=== PATIENT | female | born 1950 | race Caucasian/White ===

== ENCOUNTER 2018-05-31 16:17 | Emergency (ER) | payer MEDICARE ==
[2018-05-31 17:45] VITALS: BP 165/93
[2018-05-31] MEDS ORDERED: Ibuprofen TAB* 600 MG PO ONE (17:59)
--- NOTE | 2018-05-31 18:04 | UC ---
Hand/Wrist HPI - HPI Summary HPI Summary: patient states she was playing with grandson around 4p this afternoon with trucks when she felt a very sharp apin on the thumb and along that side of the right wrist. Denies falling or trauma. Pain is very acute. She has not taken any medications to alleviate it. States her BP goes up every time she is under stress - History Of Current Complaint Chief Complaint: UCUpperExtremity Stated Complaint: HAND PAIN Time Seen by Provider: 05/31/18 17:40 Hx Obtained From: Patient Hx Last Menstrual Period: post menopausal ?: No Onset/Duration: Sudden Onset Severity Initially: Moderate Severity Currently: Severe Pain Intensity: 10 Character Of Pain: Sharp Aggravating Factor(s): Movement, Lifting, Extension, Internal/External Rotation , Adduction Alleviating Factor(s): Nothing Associated Signs And Symptoms: Positive: Negative - Allergies/Home Medications Allergies/Adverse Reactions: Allergies Allergy/AdvReac Type Severity Reaction Status Date / Time erythromycin base Allergy Rash And Verified 05/31/18 17:46 Itching escitalopram [From Lexapro] Allergy Rash Verified 05/31/18 17:47 penicillin G Allergy Rash Verified 05/31/18 17:47 Penicillins Allergy Rash Verified 05/31/18 17:47 Sulfa (Sulfonamide Allergy Rash And Verified 05/31/18 17:47 Antibiotics) Itching Home Medications: Home Medications Dicyclomine HCl 20 mg PO 05/31/18 [History] PMH/Surg Hx/FS Hx/Imm Hx Previously Healthy: Yes Endocrine History: Hypothyroidism Respiratory History: Asthma - Surgical History Surgical History: Yes Surgery Procedure, Year, and Place: Hysterectomy late [place] breast lumpectomy 2008, appendectomy as a child - Family History Known Family History: Positive: Hypertension - Social History Alcohol Use: None Substance Use Type: None Smoking Status (MU): Never Smoked Tobacco Have You Smoked in the Last Year: No Review of Systems Constitutional: Negative Skin: Negative Musculoskeletal: Arthralgia, Myalgia All Other Systems Reviewed And Are Negative: Yes Physical Exam Triage Information Reviewed: Yes Appearance: Well-Appearing, Well-Nourished, Pain Distress Vital Signs: Initial Vital Signs Temp 98.6 F 05/31/18 17:37 Pulse 79 05/31/18 17:37 Resp 16 05/31/18 17:37 BP 165/93 05/31/18 17:37 Pulse Ox 97 05/31/18 17:37 Vital Signs Reviewed: Yes Eyes: Positive: Conjunctiva Clear ENT: Positive: Hearing grossly normal Neck exam: Normal Respiratory: Positive: Chest non-tender Cardiovascular: Positive: Pulses Normal, Brisk Capillary Refill Musculoskeletal: Positive: ROM Intact, No Edema, Other: - tenderness along radial aspect of right wrist and radial aspect of proximal carpal area. No deformity or edema/erythema on the area. Positive Lemuel test Hand/Wrist Course/Dx - Course Course Of Treatment: xray shows DJD changes, start NSAIDs as instructed. F/u with PCP. use sling and wrist splint as indicated - Differential Dx/Diagnosis Provider Diagnoses: De Quervain's tenosinusitis. Osteoarthritis Discharge - Sign-Out/Discharge Documenting (check all that apply): Patient Departure - Discharge Plan Condition: Stable Disposition: HOME Patient Education Materials: Osteoarthritis (ED), De Quervain Disease (ED), Ibuprofen (By mouth) Referrals: Alix Hsieh MD [Primary Care Provider] - - Billing Disposition and Condition Condition: STABLE Disposition: Home
--- NOTE | 2018-05-31 18:26 | RAD ---
INDICATION: RIGHT thumb pain and edema. COMPARISON: No relevant prior exams [place] [facility] [place]. TECHNIQUE: AP, lateral, and oblique views RIGHT hand. REPORT: Bone density appears decreased throughout. In addition there is suggestion of periarticular osteopenia throughout. Negative for fracture or dislocation. Osteophytosis and advanced joint space narrowing at the basal joint of the thumb. Joint space narrowing at the metacarpal phalangeal and interphalangeal joints with relative paucity of osteophytosis. No definitive osseous erosions evident. Similar pattern of arthropathy at the wrist. Mild periarticular soft tissue swelling at the metacarpal phalangeal and proximal interphalangeal joints. IMPRESSION: #. Negative for fracture or dislocation. #. Mixed arthropathy pattern with degenerative arthropathy at the basal joint of the thumb and stigmata of inflammatory arthropathy/rheumatoid arthritis at the metacarpal phalangeal and interphalangeal joints as well as at the wrist.
== END 2018-05-31 18:52 | disposition home or self-care (01) ==
LOC: UCEAST 16:17
DX: M65.4 Radial styloid tenosynovitis [de Quervain] (principal); M19.041 Primary osteoarthritis, right hand; Z88.1 Allergy status to other antibiotic agents; Z88.0 Allergy status to penicillin; Z88.2 Allergy status to sulfonamides; Z82.49 Family history of ischemic heart disease and other diseases of the circulatory system
CPT/HCPCS: 99212; A9270-GY; G0463

== ENCOUNTER 2019-06-29 11:36 | Emergency (ER) | payer MEDICARE ==
[2019-06-29 13:04] VITALS: BP 152/77
--- NOTE | 2019-06-29 13:28 | UC ---
Respiratory Complaint HPI - HPI Summary HPI Summary: Sinus inflammation and congestion for a few days. Of note also sick. she is requesting antibx. - History of Current Complaint Chief Complaint: UCGeneralIllness Stated Complaint: SINUSES Time Seen by Provider: 06/29/19 13:08 Hx Obtained From: Patient Hx Last Menstrual Period: post menopausal Pain Intensity: 0 Pain Scale Used: 0-10 Numeric Character: Cough: Productive Aggravating Factors: Nothing Alleviating Factors: Nothing Associated Signs And Symptoms: Negative: Dyspnea, Fever, Chills - Allergies/Home Medications Allergies/Adverse Reactions: Allergies Allergy/AdvReac Type Severity Reaction Status Date / Time erythromycin base Allergy Rash And Verified 06/29/19 13:05 Itching escitalopram [From Lexapro] Allergy Rash Verified 06/29/19 13:05 penicillin G Allergy Rash Verified 06/29/19 13:05 Penicillins Allergy Rash Verified 06/29/19 13:05 Sulfa (Sulfonamide Allergy Rash And Verified 06/29/19 13:05 Antibiotics) Itching Home Medications: Home Medications Methylcellulose [Citrucel] 1 tab PO BEDTIME 06/29/19 [History Confirmed 06/29/19 ] PMH/Surg Hx/FS Hx/Imm Hx Previously Healthy: Yes Endocrine History: Thyroid Disease Respiratory History: Asthma - Surgical History Surgical History: Yes Surgery Procedure, Year, and Place: Hysterectomy late [place], [place] breast lumpectomy 2008, appendectomy as a child - Family History Known Family History: Positive: Hypertension - Social History Alcohol Use: None Substance Use Type: None Smoking Status (MU): Never Smoked Tobacco Have You Smoked in the Last Year: No Review of Systems All Other Systems Reviewed And Are Negative: Yes Constitutional: Negative: Fever Skin: Negative: Rash ENT: Positive: Nasal Discharge, Sinus Congestion, Sinus Pain/Tenderness. Negative: Sore Throat, Ear Ache Respiratory: Positive: Cough. Negative: Shortness Of Breath Cardiovascular: Negative: Palpitations Physical Exam Triage Information Reviewed: Yes Appearance: Well-Appearing Vital Signs: Initial Vital Signs Temp 98 F 06/29/19 13:00 Pulse 88 06/29/19 13:00 Resp 16 06/29/19 13:00 BP 152/77 06/29/19 13:00 Pulse Ox 97 06/29/19 13:00 Vital Signs Reviewed: Yes Eyes: Positive: Conjunctiva Clear ENT: Positive: Pharynx normal, TMs normal, Sinus tenderness - frontal, Uvula midline. Negative: Dental tenderness Neck: Positive: No Lymphadenopathy Respiratory Exam: Normal Cardiovascular Exam: Normal Neurological: Positive: Alert Skin: Negative: Rashes Respiratory Course/Dx - Course Course Of Treatment: Sinusitis; acute. Exam unremarkable aside from frontal tenderness. I explained that I suspect viral etiology and that antibx may not help. She has decided to take antibx Vitals good but I did ask her to speak to her pcp about blood pressure. - Differential Dx/Diagnosis Differential Diagnosis/HQI/PQRI: Lower Resp Infection, Sinusitis Provider Diagnosis: Sinusitis Discharge ED - Sign-Out/Discharge Documenting (check all that apply): Patient Departure All imaging exams completed and their final reports reviewed: No Studies - Discharge Plan Condition: Good Disposition: HOME Prescriptions: Azithromycin TAB* [Zithromax TAB (Z-IRVING) 250 mg #6 tabs] 2 tab PO .TODAY, THEN 1 DAILY #1 irving Patient Education Materials: Sinusitis (ED) Referrals: Alix Hsieh MD [Primary Care Provider] - Additional Instructions: Please discuss your high blood pressure with your pcp - Billing Disposition and Condition Condition: GOOD Disposition: Home - Attestation Statements Provider Attestation: I was available for consult. This patient was seen by the ZAKI. The patient was not presented to , seen by or examined by al -Nader Quintero MD
== END 2019-06-29 13:54 | disposition home or self-care (01) ==
LOC: UCEAST 11:36
DX: J32.9 Chronic sinusitis, unspecified (principal); E07.9 Disorder of thyroid, unspecified; J45.909 Unspecified asthma, uncomplicated; Z88.0 Allergy status to penicillin; Z88.2 Allergy status to sulfonamides
CPT/HCPCS: 99212; G0463

== ENCOUNTER 2020-06-20 19:45 | Observation (INO) ==
[2020-06-20 20:11] LABS: ABS Basophils 0.1 10^3/ul (0-0.2); ABS Eosinophils 0.1 10^3/ul (0-0.6); ABS Lymphocytes 1.4 10^3/ul (1.0-4.8); ABS Monocytes 0.4 10^3/ul (0-0.8); Eosinophil % 1.8 %; Hematocrit 42 % (35-47); Hemoglobin 14.8 g/dL (12.0-16.0); Lymphocyte % 23.4 %; Mean Corpuscular HGB Conc 35 g/dL (31-36); Mean Corpuscular Hemoglobin 31 pg (27-31); Mean Corpuscular Volume 89 fL (80-97); Mean Platelet Volume 7.9 fL (7.4-10.4); Platelet Count 200 10^3/uL (150-450); Red Blood Count 4.72 10^6 /uL (3.70-4.87); Red Cell Distribution Width 14 % (10-15)
[2020-06-20 20:16] LABS: INR 0.97 (0.82-1.09)
[2020-06-20 20:28] LABS: Albumin 4.7 g/dL (3.2-5.2); Albumin/Globulin Ratio 1.8 (1-3); BUN/Creatinine Ratio 16.9 (8-20); Calcium 9.9 mg/dL (8.6-10.3); EGFR African American 82.2 (>60); Globulin 2.6 g/dL (2-4); Potassium 3.8 mmol/L (3.5-5.0); Total Bilirubin 0.5 mg/dL (0.2-1.0); Total Protein 7.3 g/dL (6.4-8.9)
[2020-06-20 20:29] LABS: Troponin I 0.02 ng/mL (<0.03)
[2020-06-20 23:56] LABS: Troponin I 0.03 ng/mL (<0.03)
[2020-06-21] MEDS ORDERED: Albuterol HFA INHALER 8 gm MDI INH PRN (01:19)
[2020-06-21 03:15] LABS: Cholesterol 289 mg/dL; HDL Cholesterol 69.4 mg/dL; LDL Cholesterol 194 mg/dL; Triglycerides 129 mg/dL
[2020-06-21 03:17] LABS: Troponin I 0.03 ng/mL (<0.03)
[2020-06-21] MEDS: Heparin 5000 UNITS/ML 1 mL VIAL SUBCUT SCH ×2 (06:05→15:02)
[2020-06-21] MEDS ORDERED: Fluticasone NASAL SPRAY 50MCG 16 gm SPRAY BTL BOTH NARES SCH (09:00)
[2020-06-21 12:21] VITALS: BP 119/71
== END 2020-06-21 15:00 | disposition home or self-care (01) ==
LOC: ED 19:45 → MEDTELE 19:45
PROVIDERS: ADMIT Internal Medicine; ATTEND Internal Medicine